=== PATIENT | male | born 1960 | race Caucasian/White ===

== ENCOUNTER 2020-03-27 06:06 | Day surgery (SDC) | payer OTHER ==
--- NOTE | 2020-03-23 14:07 | NUR ---
EKG SENT TO [facility] FOR REVIEW. EKG KERI FOR SURGERY 03-27-[address] Sabino MACDONALD.
--- NOTE | 2020-03-24 17:48 | NUR ---
PER DR MACDONALD ANESTHESIOLOGIST TO DO ACCUCHECK BLOOD SUGAR ON ADMISSION.
[~2020-03-27] VITALS: Ht 175.3 cm; Wt 86.2 kg
[2020-03-27 06:18] VITALS: BP 163/77
[2020-03-27 10:25] VITALS: BP 142/78
== END 2020-03-27 10:15 | disposition home or self-care (01) ==
LOC: DS 06:06 → OR 07:30 → DS 07:30 → OR 08:30 → DS 10:15
PROVIDERS: ATTEND Neuromusculoskeletal Medicine, Sports Medicine
DX: M75.01 Adhesive capsulitis of right shoulder (principal); Z11.59 Encounter for screening for other viral diseases
CPT/HCPCS: 82947; J3301; J3490; U0003-CS